=== PATIENT | female | born 1950 | race Caucasian/White ===

== ENCOUNTER → 2017-03-14 | Outpatient (CLI) | payer OTHER ==
[2014-11-19 17:56] VITALS: BP 185/95
--- NOTE | 2017-03-14 13:42 | KCIC ---
Bilateral digital screening mammograms: Reason for examination: Routine screening. Comparison is made to previous studies dated 03/13/2016 and 03/12/2015. Interpretation was made with the benefit of CAD. The skin and nipples show no abnormalities. No abnormal axillary lymph nodes are seen. The breast parenchyma shows scattered fibroglandular density. (Breast density: Category B.) There are no dominant masses, suspicious calcifications or architectural distortions. Some benign calcifications are present. Impression: No evidence of malignancy. Recommend routine screening. BI-RADS category 2: Benign "Our facility is accredited by the [employer] Mammography [employer]." This patient's information has been entered into a reminder system for the patient to be notified with the results of her examination and a target date for the next mammogram. Electronically signed by: Karen Herbert MD (03/14/2017 1:39 PM) [id number]
== END | disposition home or self-care (01) ==
LOC: KCIC MAMMO 07:48
PROVIDERS: ATTEND Obstetrics & Gynecology
DX: Z12.31 Encounter for screening mammogram for malignant neoplasm of breast (principal)
CPT/HCPCS: G0202; 77067

== ENCOUNTER → 2018-03-15 | Outpatient (CLI) | payer MEDICARE, OTHER ==
[2014-11-19 17:56] VITALS: BP 185/95
--- NOTE | 2018-03-15 12:09 | KCIC ---
EXAM: Bilateral digital screening mammogram with tomosynthesis. HISTORY: 67-year-old female presents for screening mammography. TECHNIQUE: Full-field digital craniocaudal and mediolateral oblique 2D and 3D tomosynthesis images of both breasts are obtained for evaluation. Computer aided detection with TrippyD software version 9.3 was applied. COMPARISON: 03/13/2016 and 03/14/2017 BREAST PARENCHYMAL DENSITY: Level B - Scattered fibroglandular densities. FINDINGS: There is no new suspicious mass, microcalcification or region of architectural distortion. IMPRESSION: BI-RADS Category 2: Benign finding(s). RECOMMENDATION: Annual mammography is recommended. If your mammogram demonstrates that you have dense breast tissue, which could hide abnormalities, and if you have other risk factors for breast cancer that have been identified, you might benefit from supplemental screening tests that may be suggested by your ordering physician. Dense breast tissue, in and of itself, is a relatively common condition. This information is not provided to cause undue concern, but rather to raise your awareness and to promote discussion with your physician regarding the presence of other risk factors, in addition to dense breast tissue. A report of your mammography results will be sent to you and your physician. You should contact your physician if you have any questions or concerns regarding this report. Mammography is a sensitive method for finding small breast cancers, but it does not detect them all and is not a substitute for careful clinical examination. A negative mammogram does not negate a clinically suspicious finding and should not result in delay in biopsying a clinically suspicious abnormality. PQRS compliance statement - Patient information was entered into a reminder system with a target due date for the next mammogram. "Our facility is accredited by the [employer]ammography [employer]." Electronically signed by: Radha Jones MD (03/15/2018 12:05 PM) [id number]
== END | disposition home or self-care (01) ==
LOC: KCIC MAMMO 10:36
PROVIDERS: ATTEND Obstetrics & Gynecology
DX: Z12.31 Encounter for screening mammogram for malignant neoplasm of breast (principal)
CPT/HCPCS: 77063; 77067

== ENCOUNTER → 2018-03-21 | Outpatient (CLI) | payer MEDICARE, OTHER ==
[2014-11-19 17:56] VITALS: BP 185/95
--- NOTE | 2018-03-21 16:17 | KCIC ---
Bone densitometry 03/21/2018 10:30 AM Indication: History of osteopenia. Comparison Study: bone densitometry March 16, 2016. Discussion: Bone Densitometry was performed with dual photon absorption of the lumbar spine and proximal left femur Lumbar Spine: Bone average density is 0.84 8g/cm2 for L1-L4. T-Score is -1.5 (prior T score -1.3) Left femoral neck: Bone average density is 0.789g/cm2. T-Score is -1.3. (Prior T score -1.3) IMPRESSION: Osteopenia of the lumbar spine and left femoral neck, similar to comparison exam. Note: Definitions established by the World Health Organization: Normal: T-score is -1.0 or above. Osteopenia: T-score is between -1.0 and -2.5. Osteoporosis: T-score is -2.5 or below. Electronically signed by: Gunner Morton MD (03/21/2018 2:31 PM) [id number]
== END | disposition home or self-care (01) ==
LOC: KCIC DEXA 10:24
PROVIDERS: ATTEND Obstetrics & Gynecology
DX: M85.89 Other specified disorders of bone density and structure, multiple sites (principal)
CPT/HCPCS: 77080

== ENCOUNTER → 2019-03-24 | Outpatient (CLI) | payer MEDICARE, OTHER ==
[2014-11-19 17:56] VITALS: BP 185/95
--- NOTE | 2019-03-25 08:38 | KCIC ---
MRI of the lumbar spine without contrast 03/24/2019 CLINICAL HISTORY: Chronic low back pain since October. The pain radiates down the right leg. TECHNIQUE: Unenhanced T1-weighted and T2-weighted sagittal and axial and inversion recovery sagittal images of the lumbar spine were obtained. FINDINGS: The patient appears to have transitional vertebral anatomy. For the purposes of this dictation 5 lumbar vertebrae have been assumed. The last reasonly well-defined lumbar-appearing disc space will be referred to as L5-S1. S1 is partially lumbarized. A hypoplastic disc is seen at S1-2. Minimal lateral curvature of the lumbar spine is seen convex to the left. Mild anterolisthesis of L5 in relation to S1 is noted. Degenerative signal changes are seen involving all of the disks of the lumbar spine. Degenerative signal changes within the marrow surrounding these discs. Loss of height of the L5-S1 disc is noted. The conus medullaris is normal morphology, position, and signal characteristics. At the L1-2 and L2-3 disc spaces there are minimal to mild generalized disc bulges. Degenerative changes are seen involving the facet joints bilaterally. There is mild ligamentum flavum hypertrophy bilaterally. These findings do not result in significant central spinal canal or neural foraminal stenosis. At the L3-4 disc space there is a mild generalized disc bulge. Degenerative changes are seen involving the facet joints bilaterally. There is mild ligamentum flavum hypertrophy bilaterally. These findings when combined result in very mild central spinal canal stenosis. No neural foraminal stenosis is seen. At the L4-5 disc space there is a mild to moderate generalized disc bulge. Degenerative changes are seen involving the facet joints bilaterally. There are small facet joint effusions bilaterally. Moderate ligamentum flavum hypertrophy is seen bilaterally. A synovial cyst is seen projecting anteriorly and medially from the right facet joint. This measures 2 cm in greatest diameter. These findings when combined result in moderate to severe right greater than left central spinal canal stenosis. No neural foraminal stenosis is seen. At the L5-S1 disc space there is a mild to moderate generalized disc bulge. Degenerative changes are seen involving the facet joints bilaterally. There are small to moderate-sized facet joint effusions bilaterally. Moderate ligamentum flavum hypertrophy is seen bilaterally. These findings when combined result in mild to moderate central spinal canal stenosis. No neural foraminal stenosis is seen. IMPRESSION: The changes of degenerative disc disease are seen throughout the lumbar spine. These findings result in very mild central spinal canal stenosis at L3-4, mild to moderate central spinal canal stenosis at L5-S1 and moderate to severe right greater than left central spinal canal stenosis at L4-5. No neural foraminal stenosis is seen. Electronically signed by: Chadwick Christina MD (03/25/2019 8:35 AM) [id number]
== END | disposition home or self-care (01) ==
LOC: KCIC MRI 16:46
DX: M51.27 Other intervertebral disc displacement, lumbosacral region (principal); M48.07 Spinal stenosis, lumbosacral region; M47.817 Spondylosis without myelopathy or radiculopathy, lumbosacral region; G89.29 Other chronic pain; Z90.710 Acquired absence of both cervix and uterus
CPT/HCPCS: 72148

== ENCOUNTER → 2019-05-09 | Outpatient (CLI) | payer MEDICARE, OTHER ==
[2014-11-19 17:56] VITALS: BP 185/95
--- NOTE | 2019-05-09 09:22 | KCIC ---
Bilateral digital screening mammograms with 3-D tomosynthesis: Reason for examination: Routine screening. Comparison is made to previous studies dated 03/15/2018 and 03/14/2017. Bilateral mammograms in CC and oblique projections were obtained with 2-D imaging and 3-D tomosynthesis imaging on a Siemens Inspiration unit and reviewed on the workstation. Interpretation was made with the benefit of CAD. The skin and nipples show no abnormalities. No abnormal axillary lymph nodes are seen. The breast parenchyma shows scattered fatty and fibroglandular density. (Breast density: Category B.) There are no dominant masses, suspicious calcifications or architectural distortion. Benign calcifications are present. Impression: No evidence of malignancy. Recommend routine screening. BI-RAD Category 2: Benign. "Our facility is accredited by the [employer] Mammography [employer]." This patient's information has been entered into a reminder system for the patient to be notified with the results of her examination and a target date for the next mammogram. Electronically signed by: Karen Herbert MD (05/09/2019 9:19 AM) [email or web address]
== END | disposition home or self-care (01) ==
LOC: KCIC MAMMO 07:50
PROVIDERS: ATTEND Obstetrics & Gynecology
DX: Z12.31 Encounter for screening mammogram for malignant neoplasm of breast (principal); N64.89 Other specified disorders of breast
CPT/HCPCS: 77063; 77067

== ENCOUNTER → 2020-07-02 | Outpatient (CLI) | payer MEDICARE, OTHER ==
[2014-11-19 17:56] VITALS: BP 185/95
--- NOTE | 2020-07-02 11:46 | KCIC ---
INDICATION: Screening for osteopenia/osteoporosis. Postmenopausal evaluation. COMPARISON: 03/21/2018 TECHNIQUE: Bone densitometry was performed through the lumbar spine and proximal femur. IMPRESSION: Femur: BMD: 0.75 T-Score: -1.6 Range: Osteopenic. Decreased by 5 percent from prior. Lumbar Spine BMD: 0.8 T-Score: -2.3 Range: On the border between osteopenia and osteoporosis. Decreased by 10 percent from prior. World Health Organization Criteria for Bone Density: T-Score: > -1.0: Normal Range < -1.0 to -2.5: Osteopenic Range < -2.5: Osteoporotic Range Electronically signed by: Jorge Ledezma MD (07/02/2020 11:43 AM) [id number]
--- NOTE | 2020-07-02 14:07 | KCIC ---
Bilateral digital screening mammograms with 3-D tomosynthesis: Reason for examination: Routine screening. Comparison is made to previous studies dated back to 03/14/2017. Bilateral mammograms in CC and oblique projections were obtained with 2-D imaging and 3-D tomosynthes is imaging on a Siemens Inspiration unit and reviewed on the workstation. Interpretation was made wit h the benefit of CAD. The skin and nipples show no abnormalities. No abnormal axillary lymph nodes are seen. The breast par enchyma shows scattered fatty and fibroglandular density. (Breast density: Category B.) There continu es to be a nodular parenchymal density posteriorly at the 3:00 C position of the left breast which is unchanged. There are no new dominant masses, suspicious calcifications or architectural distortion. Benign calcifications are present. Impression: No evidence of malignancy. Recommend routine screening. BI-RAD Category 2: Benign. "Our facility is accredited by the [employer] Mammography Program." This patient's information has been entered into a reminder system for the patient to be notified wit h the results of her examination and a target date for the next mammogram. Electronically signed by: Karen Herbert MD (07/02/2020 2:05 PM) [email or web address]
== END ==
LOC: KCIC MAMMO 10:18
PROVIDERS: ATTEND Obstetrics & Gynecology
DX: Z12.31 Encounter for screening mammogram for malignant neoplasm of breast (principal); N64.89 Other specified disorders of breast; M85.88 Other specified disorders of bone density and structure, other site; M81.0 Age-related osteoporosis without current pathological fracture; Z78.0 Asymptomatic menopausal state
CPT/HCPCS: 77063; 77067; 77080